=== PATIENT | female | born 1980 | race Caucasian/White ===

== ENCOUNTER → 2017-11-22 09:29 | Outpatient (CLI) | payer OTHER, MEDICAID, SELFPAY ==
--- NOTE | 2017-11-22 | DI.US.S_ITS ---
PROCEDURE: US ABDOMEN COMPLETE INDICATIONS: 37 year-old female with abnormal liver function tests and dysphagia. TECHNIQUE: Real-time scanning was performed of the abdominal and retroperitoneal organs, with image documentation. COMPARISON: None. FINDINGS: Liver: Liver is normal in size and diffusely heterogeneous in echotexture. Gallbladder: 3.2 cm solitary dependent mobile shadowing gallstone is present. Gallbladder wall thickness is normal at 2 mm. No pericholecystic fluid or sonographic Bishop's sign. Biliary ducts: Intrahepatic bile ducts are non-dilated. Extrahepatic bile duct caliber measures 7 mm. Normal is 6-7 mm or less in diameter, or 10 mm or less post-cholecystectomy. Pancreas: Visualized portions of the pancreas are sonographically normal. Spleen: Spleen is normal in size and homogeneous in echotexture. Kidneys: Kidneys are normal in size and echotexture. Right kidney measures 13.9 cm long; left kidney measures 12.9 cm long. No hydronephrosis or nephrolithiasis. No solid masses. Aorta: Visualized aorta is normal in caliber at less than 3 cm. Iliacs: Obscured by bowel gas. IVC: Obscured by echodense hepatic parenchyma. Miscellaneous: No free abdominal fluid. IMPRESSION: 1. Cholelithiasis, without sonographic evidence for acute cholecystitis. 2. Diffusely heterogeneous liver echotexture, a nonspecific finding that probably represents fatty infiltration in the absence of any chronic liver disease or primary malignancy history. Dictated by: Devendra Garcia M.D. on 11/22/2017 at 10:16 Approved by: Devendra Garcia M.D. on 11/22/2017 at 10:19
--- NOTE | 2017-11-22 | DI.RAD.S_ITS ---
PROCEDURE: FL UPPER GI W AIR INDICATIONS: ABNORMAL LFT'S DYSPHAGIA COMPARISON: None. 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 No suspicious abdominal calcifications. Visualized solid organ contours appear normal. Bony structures appear unremarkable. Esophagus: Esophageal mucosa is normal on air-contrast views. On single-contrast views, there is normal esophageal peristalsis. No strictures, extrinsic mass effects, or diverticula. No hiatal hernia or elicited gastroesophageal reflux. There is normal transit of a calibrated barium tablet through the esophagus. Stomach: The stomach is normally distensible, with normal rugal fold thickness. No mucosal masses or ulcers. Pylorus and duodenal bulb appear normal in morphology. Duodenal folds are normal in thickness as well. IMPRESSION: Limited exam showing no evidence of esophageal, gastric or duodenal abnormality Dictated by: Sherman Simons M.D. on 11/22/2017 at 13:03 Approved by: Sherman Simons M.D. on 11/22/2017 at 13:05
== END ==
PROVIDERS: Visit Provider Family Medicine
DX: K80.20 Calculus of gallbladder without cholecystitis without obstruction (principal); R13.10 Dysphagia, unspecified; R79.89 Other specified abnormal findings of blood chemistry
CPT/HCPCS: 74247; 76700

== ENCOUNTER 2022-09-15 13:23 | Emergency (ER) | payer OTHER, MEDICAID, SELFPAY ==
[2022-09-15] VITALS (8 sets, daily range): BP systolic 105–184; BP diastolic 57–94; PULSE 59–81; RESP 19; TEMP 36.5; O2SAT 97–99; BMI 57.4
--- NOTE | 2022-09-15 17:15 | ED_ITS ---
HPI - Back Pain/Injury General Chief Complaint: Back Pain/Injury Stated Complaint: hurt back T-1 Time Seen by Provider: 09/15/22 17:00 Source: patient History of Present Illness HPI Narrative: Patient 42-year-old female history of obesity presenting today with back pain mostly on the left side. She reports that her brother is in the hospitalist who is helping him to a commode yesterday she twisted and turned suddenly had pain. She previously had sciatica with pain radiating down her leg she does not have that today. She has no changes in bowel or bladder habits. No fevers. No weakness in the legs. She has a tens unit on arnica cream usually works it is not working now. She last took ibuprofen around 6:00 a.m.. Related Data Previous Rx's Medication Instructions Recorded hydrocodone 5 mg-acetaminophen 325 1 tab PO Q6H PRN pain #10 tabs 09/15/22 mg tablet lidocaine 5 % topical patch 1 patch topical DAILY PRN pain, 09/15/22 mild #30 ea methocarbamol 750 mg tablet 750 mg PO Q8H PRN muscle spasm #14 09/15/22 tabs Allergies Allergy/AdvReac Type Severity Reaction Status Date / Time egg AdvReac Gastrointestinal Verified 09/15/22 13:41 Upset Review of Systems Review of Systems ROS Unobtainable: All systems reviewed & are unremarkable except as noted in HPI and below Exam Initial Vital Signs Initial Vital Signs: Vital Signs Temperature 97.7 F 09/15/22 13:31 Pulse Rate 81 09/15/22 13:31 Respiratory Rate 19 09/15/22 13:31 Blood Pressure 184/94 H 09/15/22 13:31 Pulse Oximetry 98 09/15/22 13:31 Oxygen Delivery Method Room Air 09/15/22 13:31 GENERAL: Alert 42-year-old female appears uncomfortable, BMI 57 CARDIOVASCULAR: peripheral pulses in tact, cap refill <2 sec RESPIRATORY: No respiratory distress, speaks in full sentences without difficulty EXTREMITIES: Normal range of motion, no clubbing or edema. Neurovascularly intact BACK: No midline tenderness left lower lumbar pain reproducible to palpation NEUROLOGICAL: Cranial nerves II through XII grossly intact. Normal gait and speech. Sensation in lower extremities SKIN: Warm, dry, no petechiae, no rashes or lesions. 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 Stat Discontinued Medications Ketorolac Tromethamine (Ketorolac 30 Mg/Ml Vial) 30 mg IM NOW ONE Stop: 09/15/22 17:16 Last Admin: 09/15/22 17:24 Dose: 30 mg Documented By: AT Lidocaine (Lidocaine Patch 1 Each Adh..Patch) 1 each TOP NOW ONE Stop: 09/15/22 17:31 Last Admin: 09/15/22 17:24 Dose: 1 each Documented By: AT Vital Signs Vital signs: Vital Signs - 8 hr 09/15/22 13:31 09/15/22 15:19 09/15/22 15:20 Temperature 97.7 F Pulse Rate 81 63 64 Respiratory Rate 19 Blood Pressure 184/94 H Pulse Oximetry 98 98 97 Oxygen Delivery Method Room Air 09/15/22 15:20 09/15/22 15:30 09/15/22 15:30 Temperature Pulse Rate 61 Respiratory Rate Blood Pressure 147/69 H 130/71 Pulse Oximetry 97 Oxygen Delivery Method Room Air 09/15/22 16:00 09/15/22 16:00 09/15/22 16:30 Temperature Pulse Rate 65 Respiratory Rate Blood Pressure 119/57 L 155/78 H Pulse Oximetry 98 Oxygen Delivery Method 09/15/22 16:30 09/15/22 17:00 09/15/22 17:42 Temperature Pulse Rate 59 L 61 67 Respiratory Rate Blood Pressure 105/59 L Pulse Oximetry 99 99 97 Oxygen Delivery Method Room Air Room Air MDM - Back Pain/Injury Lab Data Labs: Point of Care Testing Test Results Negative Urine Dip Bedside Urine Glucose Negative Bedside Urine Bilirubin - Negative Bedside Urine Ketone - Negative Urine Specific Carlos 1.020 Bedside Urine Occult Blood - Negative Bedside Urine pH 6.0 Bedside Urine Protein - Negative Bedside Urine Urobilinogen - Negative Bedside Urine Nitrite - Negative Bedside Urine Leukocytes - Negative Esterase MDM Narrative Medical decision making narrative: 42-year-old female with left lumbar pain. Worse with palpation and movement. No cauda equina symptoms. It is better with some home remedies but pain is out of control today. She is given a lidocaine patch here in the ED she is not going to make it pharmacy. Along with Toradol. She is previously had sciatica this does not seem like sciatica today. Discharge Plan Departure Patient Disposition: Home Clinical Impression: Strain of lumbar region Instructions: DI for Back Spasm Activity Restrictions/Additional Instructions: *You have been diagnosed with back pain *What to do: At this time keep doing everything that you are doing. Heat stretches continue the arnica cream and Tens unit *Continue to take medications as directed Ibuprofen 600 mg every 6 hours if needed for gzxh-fw-vvvkoosh pain--> do not take for 8 hours Lidocaine patch 12 hours then remove [place] 1 tablet every 6 hours if needed for severe pain Methocarbamol 750 mg every 8 hours if needed for muscle spasm--> this does cause drowsiness do not drive while taking *Follow up with your primary care provider in 2-3 days or call [phone] *Return to ER if you should have increasing pain tingling weakness bladder or bowel symptoms [or] any new, worsening or concerning symptoms Prescriptions: New hydrocodone-acetaminophen 5-325 mg tablet 1 tab PO Q6H PRN (Reason: pain) Qty: 10 0RF methocarbamol 750 mg tablet 750 mg PO Q8H PRN (Reason: muscle spasm) Qty: 14 0RF lidocaine 5 % adhesive patch,medicated 1 patch topical DAILY PRN (Reason: pain, mild) Qty: 30 0RF Rx Instructions: leave on most painful area for up to 12 hrs Referrals: Miscellaneous,Doctor, MD [Primary Care Provider] - Stand Alone Forms: Patient Portal/API
[2022-09-15] MEDS: LIDOCAINE PATCH 1 EACH ADH..PATCH TOP (17:24)
[2022-09-15] MEDS: KETOROLAC 30 MG/ML VIAL IM (17:24)
== END 2022-09-15 17:45 | disposition home or self-care (01) ==
PROVIDERS: Emergency Provider Emergency Medicine
DX: S39.012A Strain of muscle, fascia and tendon of lower back, initial encounter (principal); X50.1XXA Overexertion from prolonged static or awkward postures, initial encounter
CPT/HCPCS: 81003; 81025; 96372; 99283; 99284; J1885

== ENCOUNTER 2022-09-20 12:54 | Emergency (ER) | payer OTHER, MEDICAID, SELFPAY ==
[2022-09-20 12:56] VITALS: BP 143/92; PULSE 78; RESP 16; TEMP 36.2; O2SAT 97; BMI 58.8
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
[2022-09-20] MEDS: KETOROLAC 30 MG/ML VIAL IM (14:04)
[2022-09-20] MEDS: diazePAM 5 MG TABLET PO (14:04)
--- NOTE | 2022-09-20 14:42 | PC.NURSE ---
Pt ambulated to restroom, independently and with steady gait.
[2022-09-20] MEDS: predniSONE 20 MG TABLET 60 MG PO (15:27)
[2022-09-20 15:38] VITALS: BP 126/86; PULSE 68; RESP 22; TEMP 36.6; O2SAT 98
== END 2022-09-20 15:39 | disposition home or self-care (01) ==
PROVIDERS: Emergency Provider Emergency Medicine
DX: M54.42 Lumbago with sciatica, left side (principal)
CPT/HCPCS: 72100; 96372; 99283; 99284; J1885

== ENCOUNTER 2022-10-03 15:26 | Emergency (ER) | payer OTHER, MEDICAID, SELFPAY ==
[2022-10-03 15:46] VITALS: BP 136/94; PULSE 79; RESP 19; TEMP 36.4; O2SAT 98; BMI 59.5
--- NOTE | 2022-10-03 17:50 | ED.BACK ---
HPI - Back Pain/Injury <Kalie Gaspar, [facility] - Last Filed: 10/03/22 18:18> General Chief Complaint: Back Pain/Injury Stated Complaint: BACK PAIN DOWN LT LEG Time Seen by Provider: 10/03/22 17:40 Source: patient History of Present Illness HPI Narrative: This is a 42-year-old female presents to the emergency department complaining of worsening and ongoing sciatica which has been ongoing for the last 1-2 months. This is her 3rd emergency department visit for this and states that she has not had any trauma or injuries but her ongoing sciatica symptoms have been getting worse. She has completed 1 steroid pack, has not had ongoing muscle relaxers, has been trying topical modalities, meloxicam, and states it is not adequate. She denies recent fever chills, states that it got better and then got worse with more movement. 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 She is concerned about her ongoing sciatica and worsening pain. She states she is going to the chiropractor 3 times, denies weakness, urinary retention or incontinence, denies any stool retention or constipation. Is taking MiraLax to avoid this. Patient denies numbness or tingling other than shooting sciatica symptoms occasionally with left leg movement or whole-body movements. Patient states that sitting is 1 of the worst positions. She is having difficulty sleeping at night. She denies any groin paresthesia. Urinary frequency or urgency. Related Data Previous Rx's Medication Instructions Recorded hydrocodone 5 mg-acetaminophen 325 1 tab PO Q6H PRN pain #10 tabs 09/15/22 mg tablet lidocaine 5 % topical patch 1 patch topical DAILY PRN pain, 09/15/22 mild #30 ea methocarbamol 750 mg tablet 750 mg PO Q8H PRN muscle spasm #14 09/15/22 tabs meloxicam 7.5 mg tablet 7.5 mg PO BID PRN pain #20 tabs 09/20/22 prednisone 10 mg tablets in a dose See Rx Instructions .Route 09/20/22 pack .COMPLEX #15 ea gabapentin 300 mg capsule 300 mg PO BEDTIME PRN Sciatica #30 10/03/22 caps hydrocodone 5 mg-acetaminophen 325 1 tab PO TID PRN pain #14 tabs 10/03/22 mg tablet ibuprofen 800 mg tablet 800 mg PO Q8H PRN pain #30 tabs 10/03/22 methocarbamol 750 mg tablet 750 mg PO Q8H PRN muscle spasm #30 10/03/22 tabs prednisone 50 mg tablet 50 mg PO DAILY #5 tabs 10/03/22 Allergies Allergy/AdvReac Type Severity Reaction Status Date / Time egg AdvReac Gastrointestinal Verified 10/03/22 15:54 Upset Review of Systems <MARK Reyes - Last Filed: 10/03/22 18:18> Review of Systems ROS Unobtainable: All systems reviewed & are unremarkable except as noted in HPI and below Patient History <MARK Reyes - Last Filed: 10/03/22 18:18> Social History Smoking Status: Never smoker Smoking Status: Never smoker alcohol intake frequency: 0-2 drinks per day Substance Use Type: does not use Exam <MARK Reyes - Last Filed: 10/03/22 18:18> Narrative Exam Narrative: Reviewed vitals signs and nursing notes. General: Pleasant, sitting upright, in no acute distress, well groomed, afebrile HEENT: symmetrical facial expressions, moist mucous membranes, neck is supple CV: regular rate and rhythm, warm extremities Respiratory: normal work of breathing, without tachypnea or hypoxia. GI: abdomen soft, nondistended, without CVA tenderness bilaterally. MSK: moves all extremities, no weakness, normal tone, ambulatory without deficit, leg lift exacerbates symptoms, patient has her leg elevated on a chair at this time and no sensation deficits. Bilateral lower extremity strength is equal. Skin: brisk capillary refill, without rash or wound Neuro: clear speech and normal cognition, A&O x3, GCS 15, no focal motor or sensation deficits Initial Vital Signs Initial Vital Signs: Vital Signs Temperature 97.5 F L 10/03/22 15:46 Pulse Rate 79 10/03/22 15:46 Respiratory Rate 19 10/03/22 15:46 Blood Pressure 136/94 H 10/03/22 15:46 Pulse Oximetry 98 10/03/22 15:46 Oxygen Delivery Method Room Air 10/03/22 15:46 <Franck East MD - Last Filed: 10/18/22 22:26> Initial Vital Signs Initial Vital Signs: Vital Signs Temperature 97.5 F L 10/03/22 15:46 Pulse Rate 79 10/03/22 15:46 Respiratory Rate 19 10/03/22 15:46 Blood Pressure 136/94 H 10/03/22 15:46 Pulse Oximetry 98 10/03/22 15:46 Oxygen Delivery Method Room Air 10/03/22 15:46 Course <MARK Reyes - Last Filed: 10/03/22 18:18> Orders Ordered: Discontinued Medications Hydrocodone Bitart/Acetaminophen (Hydrocodone/Acet 5/325 Tablet) 1 tab PO NOW ONE Stop: 10/03/22 17:53 Last Admin: 10/03/22 18:06 Dose: 1 tab Documented By: MEHDI Gabapentin (Gabapentin 100 Mg Capsule) 100 mg PO NOW ONE Stop: 10/03/22 17:53 Last Admin: 10/03/22 18:06 Dose: 100 mg Documented By: MEHDI Ketorolac Tromethamine (Ketorolac 30 Mg/Ml Vial) 30 mg IM NOW ONE Stop: 10/03/22 17:52 Last Admin: 10/03/22 18:02 Dose: 30 mg Documented By: MEHDI Lidocaine (Lidocaine Patch 1 Each Adh..Patch) 1 each TOP NOW ONE Stop: 10/03/22 17:52 Last Admin: 10/03/22 18:05 Dose: 1 each Documented By: MEHDI Methocarbamol (Methocarbamol 500 Mg Tablet) 750 mg PO NOW ONE Stop: 10/03/22 17:52 Last Admin: 10/03/22 18:02 Dose: 750 mg Documented By: MEHDI Prednisone (Prednisone 20 Mg Tablet) 60 mg PO NOW ONE Stop: 10/03/22 17:52 Last Admin: 10/03/22 18:05 Dose: 60 mg Documented By: RL Vital Signs Vital signs: Vital Signs - 8 hr 10/03/22 15:46 Temperature 97.5 F L Pulse Rate 79 Respiratory Rate 19 Blood Pressure 136/94 H Pulse Oximetry 98 Oxygen Delivery Method Room Air <Franck East MD - Last Filed: 10/18/22 22:26> Orders Ordered: Discontinued Medications Hydrocodone Bitart/Acetaminophen (Hydrocodone/Acet 5/325 Tablet) 1 tab PO NOW ONE Stop: 10/03/22 17:53 Last Admin: 10/03/22 18:06 Dose: 1 tab Documented By: MEHDI Gabapentin (Gabapentin 100 Mg Capsule) 100 mg PO NOW ONE Stop: 10/03/22 17:53 Last Admin: 10/03/22 18:06 Dose: 100 mg Documented By: MEHDI Ketorolac Tromethamine (Ketorolac 30 Mg/Ml Vial) 30 mg IM NOW ONE Stop: 10/03/22 17:52 Last Admin: 10/03/22 18:02 Dose: 30 mg Documented By: MEHDI Lidocaine (Lidocaine Patch 1 Each Adh..Patch) 1 each TOP NOW ONE Stop: 10/03/22 17:52 Last Admin: 10/03/22 18:05 Dose: 1 each Documented By: MEHDI Methocarbamol (Methocarbamol 500 Mg Tablet) 750 mg PO NOW ONE Stop: 10/03/22 17:52 Last Admin: 10/03/22 18:02 Dose: 750 mg Documented By: MEHDI Prednisone (Prednisone 20 Mg Tablet) 60 mg PO NOW ONE Stop: 10/03/22 17:52 Last Admin: 10/03/22 18:05 Dose: 60 mg Documented By: MEHDI Vital Signs Vital signs: Vital Signs - 8 hr 10/03/22 15:46 Temperature 97.5 F L Pulse Rate 79 Respiratory Rate 19 Blood Pressure 136/94 H Pulse Oximetry 98 Oxygen Delivery Method Room Air MDM - Back Pain/Injury <MARK Reyes - Last Filed: 10/03/22 18:18> MDM Narrative Medical decision making narrative: Chief Complaint: Low back pain with left-sided sciatica Independent historian: Patient Multiple etiologies for patient's symptoms considered including, but not limited to: Degenerative disc disease, radiculopathy muscle strain, cauda equina, epidural abscess, canal stenosis, ligamental injury urinary tract infection I have independently reviewed the patient's vital signs and nursing notes as well as prior records if available. Pertinent records include: My interpretation of imaging: Patient has imaging from her emergency department visit on 09/20/2022 with near complete disc space at the lumbosacral junction Course of care: No back pain red flags on history or physical. Patient's pain was treated with prednisone, methocarbamol, lidocaine patch, Toradol, [place] and gabapentin 100 mg. She felt much better after observation and wishes to discharge home. No history of IV substance use, or bony tenderness to palpation, no trauma, no bony tenderness to palpation , afebrile, no CVAT, no urinary symptoms. No bowel or urinary incontinence or retention, no saddle anesthesia, no new/worsening distal weakness, decreased reflexes or foot drop. Pt is nontoxic appearing. Patient has soft tissue tenderness to palpation. Pt is neurovascularly intact distally, afebrile, without immunosuppression or evidence of infection. Her most recent x-ray of her lumbar spine on 09/20/2022 shows no acute abnormality, multilevel lumbar spondylopathy the lumbosacral junction where there is near complete intervertebral disc space loss. She is without peritoneal, hypertensive crisis, incontinence, or meningeal signs. Follow-up with her PCP, and contact information for Dr. Snow was given for possible steroid injection. She may benefit from MRI however she does not have any red flag symptoms today. She has not been able to see physical therapy since she is still having a flare. Social considerations that may affect disposition: none Questions are addressed and there is agreement with the plan and for follow-up. Patient is appropriate for outpatient management. Discharge Plan Departure Patient Disposition: Home Clinical Impression: Back pain of lumbar region with sciatica Instructions: DI for Back Pain With Sciatica Activity Restrictions/Additional Instructions: *You have been diagnosed with lumbar radiculopathy/sciatica which has been getting worse. Since this is been an ongoing flare, please start taking ibuprofen 800 mg every 8 hours with the methocarbamol/a muscle relaxer as needed, you can take hydrocodone every 4-6 hours as needed, use gabapentin 300 mg at night as needed for sciatica, do not take at the same time as the other medications. Please take prednisone each day for the next [address] Snow's office on Wednesday to see if you can get in for a steroid injection or be evaluated for your ongoing pain. When your flare has calmed down, please get in for physical therapy. *What to do: *Please continue to take your regular medications as directed. [x ] New medication prescriptions sent to your pharmacy: [ [facility] ] [ ] New medication written as a paper prescription [ ] No new medications given *Please call and schedule follow up with your primary care provider in 2-3 days, at least for an update. Let them know you were seen in the Emergency Department for the above problem. We will electronically transmit a record of today's note if your PCP or specialist is in our system. *If you do not have a primary care provider please contact [phone] to establish care with one of the [facility] primary care providers. *Return to the Emergency Department for worsening symptoms, inability to keep liquids down, fever greater than 101F, chills, or other concerning symptom. Prescriptions: New ibuprofen 800 mg tablet 800 mg PO Q8H PRN (Reason: pain) Qty: 30 0RF methocarbamol 750 mg tablet 750 mg PO Q8H PRN (Reason: muscle spasm) Qty: 30 0RF prednisone 50 mg tablet 50 mg PO DAILY Qty: 5 0RF hydrocodone-acetaminophen 5-325 mg tablet 1 tab PO TID PRN (Reason: pain) Qty: 14 0RF gabapentin 300 mg capsule 300 mg PO BEDTIME PRN (Reason: Sciatica) Qty: 30 0RF No Action hydrocodone-acetaminophen 5-325 mg tablet 1 tab PO Q6H PRN (Reason: pain) Qty: 10 0RF methocarbamol 750 mg tablet 750 mg PO Q8H PRN (Reason: muscle spasm) Qty: 14 0RF lidocaine 5 % adhesive patch,medicated 1 patch topical DAILY PRN (Reason: pain, mild) Qty: 30 0RF Rx Instructions: leave on most painful area for up to 12 hrs meloxicam 7.5 mg tablet 7.5 mg PO BID PRN (Reason: pain) Qty: 20 0RF prednisone 10 mg tablets,dose pack See Rx Instructions .ROUTE .COMPLEX Qty: 15 0RF Rx Instructions: Take 5 tablets p.o. x1 day, then 4 tablets p.o. x1 day, then 3 tablets p.o. x1 day, then 2 tablets p.o. x1 day, then 1 tablet p.o. x1 day Referrals: Barrera Snow DO [Physician] - Miscellaneous,DoctorMD [Primary Care Provider] - Stand Alone Forms: Patient Portal/API <Franck East MD - Last Filed: 10/18/22 22:26> [facility] ED [facility]: I was immediately available in the department for consultation. This documentation has been reviewed and I agree with assessment and plan. Supervised by Franck East MD
[2022-10-03] MEDS: methocarbamoL 500 MG TABLET 750 MG PO (18:02)
[2022-10-03] MEDS: KETOROLAC 30 MG/ML VIAL IM (18:02)
[2022-10-03] MEDS: predniSONE 20 MG TABLET 60 MG PO (18:05)
[2022-10-03] MEDS: LIDOCAINE PATCH 1 EACH ADH..PATCH TOP (18:05)
[2022-10-03] MEDS: HYDROCODONE/ACET 5/325 TABLET 1 TAB PO (18:06)
[2022-10-03] MEDS: GABAPENTIN 100 MG CAPSULE PO (18:06)
[2022-10-03 18:11] VITALS: BP 140/71; PULSE 69; RESP 16; O2SAT 99
== END 2022-10-03 18:13 | disposition home or self-care (01) ==
PROVIDERS: Emergency Provider Nurse Practitioner Critical Care Medicine
DX: Z79.899 Other long term (current) drug therapy (principal); M54.42 Lumbago with sciatica, left side
CPT/HCPCS: 96372; 99283; J1885

== ENCOUNTER 2022-10-04 17:14 | Emergency (ER) | payer OTHER, MEDICAID, SELFPAY ==
[2022-10-04 17:17] VITALS: BP 138/78; PULSE 60; RESP 16; TEMP 36.2; O2SAT 98; BMI 45.1
--- NOTE | 2022-10-04 17:45 | ED.BACK ---
HPI - Back Pain/Injury <Arash Tellez PA-C - Last Filed: 10/04/22 19:31> General Chief Complaint: Back Pain/Injury Stated Complaint: Lt Leg Pain Time Seen by Provider: 10/04/22 17:42 History of Present Illness HPI Narrative: This is a 42-year-old female presents emergency department due to similar concerns of sciatica that she was seen for yesterday here in the emergency department. Please see record review below. Patient is not reporting any new pain but states that she was unable to waste picker the prescriptions prescribed yesterday and is reporting very similar pain. Pain is described as a pain in the left buttock this described as a burning and tingling sensation. Denies any saddle paresthesia or urinary or bowel incontinence. Denies any injury to the area. She has seen 1 session of PT. Related Data Previous Rx's Medication Instructions Recorded hydrocodone 5 mg-acetaminophen 325 1 tab PO Q6H PRN pain #10 tabs 09/15/22 mg tablet lidocaine 5 % topical patch 1 patch topical DAILY PRN pain, 09/15/22 mild #30 ea methocarbamol 750 mg tablet 750 mg PO Q8H PRN muscle spasm #14 09/15/22 tabs meloxicam 7.5 mg tablet 7.5 mg PO BID PRN pain #20 tabs 09/20/22 prednisone 10 mg tablets in a dose See Rx Instructions .Route 09/20/22 pack .COMPLEX #15 ea gabapentin 300 mg capsule 300 mg PO BEDTIME PRN Sciatica #30 10/03/22 caps hydrocodone 5 mg-acetaminophen 325 1 tab PO TID PRN pain #14 tabs 10/03/22 mg tablet ibuprofen 800 mg tablet 800 mg PO Q8H PRN pain #30 tabs 10/03/22 methocarbamol 750 mg tablet 750 mg PO Q8H PRN muscle spasm #30 10/03/22 tabs prednisone 50 mg tablet 50 mg PO DAILY #5 tabs 10/03/22 Allergies Allergy/AdvReac Type Severity Reaction Status Date / Time egg AdvReac Gastrointestinal Verified 10/03/22 15:54 Upset Review of Systems <Arash Tellez PA-C - Last Filed: 10/04/22 19:31> Review of Systems Narrative: GENERAL: Denies chills, fatigue, malaise, fever, sweats. HEENT: Denies sinus pain, ear pain, sore throat, difficulty swallowing, dizziness. RESPIRATORY: Denies dyspnea, cough, wheezing, hemoptysis, sputum. CARDIOVASCULAR: Denies chest pain, palpitations, orthopnea, edema, GASTROINTESTINAL: Denies nausea, vomiting, abdominal pain, diarrhea, constipation, melena. : Denies dysuria, frequency, incontinence, hematuria, urinary retention. MUSCULOSKELETAL: Left lower extremity pain SKIN: Denies rash, skin lesions, or other NEUROLOGIC: Denies weakness, headache, numbness, change in speech, confusion, seizures, incoordination. PSYCHIATRIC: No concerning psychosocial issues. 12 point review of systems is negative except for those stated above Patient History <Arash Tellez PA-C - Last Filed: 10/04/22 19:31> Social History Smoking Status: Never smoker Smoking Status: Never smoker alcohol intake frequency: 0-2 drinks per day Substance Use Type: does not use Exam <BEN Fuentes Last Filed: 10/04/22 19:31> Narrative Exam Narrative: GENERAL: Well-developed patient, in mild distress. HEAD: Atraumatic. Normocephalic. EYES: Pupils equal round and reactive. Extraocular motions intact. No scleral icterus. No injection or drainage. ENT: Nose without bleeding, purulent drainage. Throat without erythema, tonsillar hypertrophy or exudate. Airway patent. NECK: Trachea midline. Non tender EXTREMITIES: Mild tenderness to palpation to the left buttock area BACK: Nontender without deformity or crepitance. No flank tenderness. NEURO: AOx3. SKIN: No rash or erythema of visible areas Initial Vital Signs Initial Vital Signs: Vital Signs Temperature 97.1 F L 10/04/22 17:17 Pulse Rate 60 10/04/22 17:17 Respiratory Rate 16 10/04/22 17:17 Blood Pressure 138/78 10/04/22 17:17 Pulse Oximetry 98 10/04/22 17:17 Oxygen Delivery Method Room Air 10/04/22 17:17 <Soniya Fernandez DO - Last Filed: 10/05/22 07:27> Initial Vital Signs Initial Vital Signs: Vital Signs Temperature 97.1 F L 10/04/22 17:17 Pulse Rate 60 10/04/22 17:17 Respiratory Rate 16 10/04/22 17:17 Blood Pressure 138/78 10/04/22 17:17 Pulse Oximetry 98 10/04/22 17:17 Oxygen Delivery Method Room Air 10/04/22 17:17 Course <Arash Tellez PA-C - Last Filed: 10/04/22 19:31> Orders Ordered: Discontinued Medications Ketorolac Tromethamine (Ketorolac 30 Mg/Ml Vial) 15 mg IM NOW ONE Stop: 10/04/22 17:53 Last Admin: 10/04/22 18:01 Dose: 15 mg Documented By: OTIS Vital Signs Vital signs: Vital Signs - 8 hr 10/04/22 17:17 10/04/22 18:26 Temperature 97.1 F L Pulse Rate 60 80 Respiratory Rate 16 20 Blood Pressure 138/78 138/78 Pulse Oximetry 98 99 Oxygen Delivery Method Room Air Room Air <Soniya Fernandez DO - Last Filed: 10/05/22 07:27> Orders Ordered: Discontinued Medications Ketorolac Tromethamine (Ketorolac 30 Mg/Ml Vial) 15 mg IM NOW ONE Stop: 10/04/22 17:53 Last Admin: 10/04/22 18:01 Dose: 15 mg Documented By: OTIS Vital Signs Vital signs: Vital Signs - 8 hr 10/04/22 17:17 10/04/22 18:26 Temperature 97.1 F L Pulse Rate 60 80 Respiratory Rate 16 20 Blood Pressure 138/78 138/78 Pulse Oximetry 98 99 Oxygen Delivery Method Room Air Room Air MDM - Back Pain/Injury <Arash Tellez PA-C - Last Filed: 10/04/22 19:31> MDM Narrative Medical decision making narrative: MDM * differential diagnosis includes but not limited to sciatica, spinal cord compromise, fracture, soft tissue injury, muscle strain * Prior records reviewed: Patient was seen yesterday for the same complaint. Patient was complaining of worsening sciatica last 1-2 months. Denied any concerning signs or symptoms. Patient was given [place], gabapentin, Toradol, lidocaine patch, methocarbamol prednisone. Had a recent x-ray of her lumbar spine proximally 2 weeks ago which showed no abnormalities. Patient was given information for Dr. Snow for possible steroid injection. * My lab interpretation: None obtained * My imgaing interpretation: None obtained * Clinical Decision Rules/Scores evaluated: None * Independent discussions with: None ED Course: This is a 42-year-old female presents to the emergency department complaining of recurrent sciatic pain after being seen yesterday. Agree with the diagnosis of sciatica and discussed with the patient that the best possible treatment would be outpatient management through her primary care provider and possible chronic pain interventional pain specialist Dr. Snow that she was referred to yesterday. Toradol IM given here in the emergency department and patient now has the medications that she was prescribed yesterday and advised that she begin taking them. No red flag symptoms such as urinary or bowel incontinence, saddle paresthesia. No trauma to the area. Shared Decision Making: Discussed plan with the patient who is comfortable with the plan. Social Considerations: None Disposition: Discharge home Discharge Plan Departure Patient Disposition: Home Clinical Impression: Sciatica Instructions: DI for Back Pain With Sciatica Activity Restrictions/Additional Instructions: Thank you for coming to the [facility] Emergency Department today. As we discussed I do suspect that you have sciatica although this may be a muscle tear as we discussed. Either way the treatment remains the same. I recommend you follow up with your primary care provider as well as physical therapist as they will be able to show you could exercises for this. Your primary care provider may also be able to order more advanced imaging to diagnose any muscle tears. Please take the medications that were prescribed to yesterday as they should be able to help with the pain. I strongly recommended follow up with Dr. Snow as I believe he is the best person to treat your chronic pain. I hope you feel better soon. Prescriptions: No Action hydrocodone-acetaminophen 5-325 mg tablet 1 tab PO Q6H PRN (Reason: pain) Qty: 10 0RF methocarbamol 750 mg tablet 750 mg PO Q8H PRN (Reason: muscle spasm) Qty: 14 0RF lidocaine 5 % adhesive patch,medicated 1 patch topical DAILY PRN (Reason: pain, mild) Qty: 30 0RF Rx Instructions: leave on most painful area for up to 12 hrs meloxicam 7.5 mg tablet 7.5 mg PO BID PRN (Reason: pain) Qty: 20 0RF prednisone 10 mg tablets,dose pack See Rx Instructions .ROUTE .COMPLEX Qty: 15 0RF Rx Instructions: Take 5 tablets p.o. x1 day, then 4 tablets p.o. x1 day, then 3 tablets p.o. x1 day, then 2 tablets p.o. x1 day, then 1 tablet p.o. x1 day ibuprofen 800 mg tablet 800 mg PO Q8H PRN (Reason: pain) Qty: 30 0RF methocarbamol 750 mg tablet 750 mg PO Q8H PRN (Reason: muscle spasm) Qty: 30 0RF prednisone 50 mg tablet 50 mg PO DAILY Qty: 5 0RF hydrocodone-acetaminophen 5-325 mg tablet 1 tab PO TID PRN (Reason: pain) Qty: 14 0RF gabapentin 300 mg capsule 300 mg PO BEDTIME PRN (Reason: Sciatica) Qty: 30 0RF Referrals: Miscellaneous,Doctor, MD [Primary Care Provider] - Stand Alone Forms: Patient Portal/API <Soniya Fernandez DO - Last Filed: 10/05/22 07:27> [facility] ED Attending [place] Attestation: I was immediately available in the department for consultation. Documentation has been reviewed.
[2022-10-04] MEDS: KETOROLAC 30 MG/ML VIAL 15 MG IM (18:01)
[2022-10-04 18:26] VITALS: BP 138/78; PULSE 80; RESP 20; O2SAT 99
== END 2022-10-04 18:28 | disposition home or self-care (01) ==
PROVIDERS: Emergency Provider Physician Assistant Medical
DX: M54.32 Sciatica, left side (principal)
CPT/HCPCS: 96372; 99283; J1885

== ENCOUNTER → 2024-07-25 09:09 | Outpatient (CLI) | payer OTHER, SELFPAY ==
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
== END ==
PROVIDERS: Family Provider Physician Assistant; Referring Provider Physician Assistant Medical; Visit Provider Physician Assistant Medical
DX: R13.10 Dysphagia, unspecified (principal)
CPT/HCPCS: 74230; 92611